=== PATIENT | male | born 1950 | race Caucasian/White ===

== ENCOUNTER 2024-03-23 11:26 | Emergency (ER) | payer MEDICARE ==
[~2024-03-23] VITALS: Ht 177.8 cm; Wt 81.6 kg
[2024-03-23 11:37] VITALS: BP 142/82; PULSE 74; RESP 16; TEMP 98.1; O2SAT 98
== END 2024-03-23 13:45 | disposition home or self-care (01) ==
LOC: ER 12:15
DX: S70.01XA Contusion of right hip, initial encounter (principal); Z90.49 Acquired absence of other specified parts of digestive tract; Z98.890 Other specified postprocedural states; Z90.89 Acquired absence of other organs; W10.1XXA Fall (on)(from) sidewalk curb, initial encounter; Y93.89 Activity, other specified; Y92.89 Other specified places as the place of occurrence of the external cause; Y99.8 Other external cause status
CPT/HCPCS: 73502; 99283